=== PATIENT | female | born 1970 | race Caucasian/White ===

== ENCOUNTER 2017-03-25 11:27 | Emergency (ER) | payer MEDICAID ==
[~2017-03-25] VITALS: Ht 157.5 cm; Wt 70.8 kg
[2017-03-25] MEDS ORDERED: GABA300C PO (11:42)
[2017-03-25] MEDS: IV NORMAL SALINE 1000 ML BAG IV ONE (12:13)
[2017-03-25] MEDS: diphenhydrAMINE 50 MG/1 ML VIAL IV ONE (12:13)
[2017-03-25] MEDS: MAGNESIUM SULFATE/D5W 100 ML IV SCH (12:15)
[2017-03-25] MEDS ORDERED: MAGNESIUM SULFATE/D5W 100 ML ONE (12:19)
[2017-03-25] MEDS ORDERED: diphenhydrAMINE 50 MG/1 ML VIAL ONE (12:19)
--- NOTE | 2017-03-25 12:26 | NUR ---
DR MAN AT THE BEDSIDE FOR EVAL AND EXAM.
--- NOTE | 2017-03-25 13:19 | NUR ---
IV removed. Catheter intact and site benign. Pressure and 4x4 gauze applied to site. No bleeding noted.
--- NOTE | 2017-03-25 13:19 | NUR ---
Patient discharged to home in stable conditon. Written and verbal after care instructions given. Patient verbalizes understanding of instructions.
[2017-03-25 13:30] VITALS: BP 101/66
== END 2017-03-25 13:31 | disposition home or self-care (01) ==
LOC: ER 11:38
DX: G43.909 Migraine, unspecified, not intractable, without status migrainosus (principal); R19.7 Diarrhea, unspecified; Z88.6 Allergy status to analgesic agent; Z88.8 Allergy status to other drugs, medicaments and biological substances
CPT/HCPCS: A4663; J1200; J3475; J7030